=== PATIENT | female | born 2000 | race Caucasian/White ===

== ENCOUNTER 2021-06-30 14:22 | Outpatient (CLI) | payer OTHER ==
[2021-07-01 18:11] LABS: SARS-CoV-2 PCR by NAA Not Detected (NotDetected)
== END 2021-06-30 14:23 | disposition home or self-care (01) ==
LOC: CSHLAB 14:22
PROVIDERS: ATTEND Obstetrics & Gynecology
DX: Z20.822 Contact with and (suspected) exposure to COVID-19 (principal)
CPT/HCPCS: U0003; U0005

== ENCOUNTER 2021-07-02 18:22 | Day surgery (SDC) | payer OTHER ==
[2021-07-02 19:13] VITALS: BMI 45.4
== END 2021-07-02 19:49 | disposition home or self-care (01) ==
LOC: CSHLD/OP 18:22
PROVIDERS: ATTEND Obstetrics & Gynecology
DX: O99.891 Other specified diseases and conditions complicating pregnancy (principal); N89.8 Other specified noninflammatory disorders of vagina; O98.313 Other infections with a predominantly sexual mode of transmission complicating pregnancy, third trimester; A60.00 Herpesviral infection of urogenital system, unspecified; Z3A.39 39 weeks gestation of pregnancy

== ENCOUNTER 2021-07-04 07:06 | Inpatient (IN) | payer OTHER ==
[2021-07-04] MEDS ORDERED: Diphenoxylate HCl/Atropine Tablet PO PRN ×2 (07:37)
[2021-07-04] MEDS ORDERED: Promethazine HCl 25 MG/ML VIAL IM PRN ×2 (07:37→09:14)
[2021-07-04] MEDS ORDERED: Butorphanol Tartrate 1 MG/ML VIAL SLOW IVP PRN (07:37)
[2021-07-04] MEDS ORDERED: hydrALAZINE 20 MG/ML VIAL SLOW IVP PRN ×2 (07:37→17:55)
[2021-07-04] MEDS ORDERED: Docusate 100 MG CAP PO PRN (07:37)
[2021-07-04] MEDS ORDERED: Acetaminophen 500 MG TAB PO PRN (07:37)
[2021-07-04] MEDS ORDERED: Ibuprofen 800 MG TAB PO PRN (07:37)
[2021-07-04] MEDS ORDERED: Lidocaine 1% (PF) 30 ML VIAL SC PRN (07:37)
[2021-07-04] MEDS ORDERED: Misoprostol 200 MCG TAB PR PRN (07:37)
[2021-07-04] MEDS ORDERED: Ondansetron PF 4 MG/2 ML Vial IVP PRN ×3 (07:37→17:55)
[2021-07-04] MEDS ORDERED: HYDROcodone/Acetaminophen 5/325 mg Tablet PO PRN ×4 (07:37→22:00)
[2021-07-04] MEDS ORDERED: NS w/ Oxytocin 30 units 500 ML IV SCH ×3 (07:45→18:00)
[2021-07-04] MEDS ORDERED: Penicillin G Potassium 5 MILL.UNITS in Sodium Chloride 0.9% 100 ML IVPB SCH (07:45)
[2021-07-04] MEDS ORDERED: NS w/ Oxytocin 30 units 500 ML IVPB SCH (07:45)
[2021-07-04] MEDS ORDERED: Penicillin G Potassium 5 MILL.UNITS VIAL ONE (07:59)
[2021-07-04] MEDS ORDERED: Butorphanol Tartrate 1 MG/ML VIAL ONE (07:59)
[2021-07-04] MEDS: Lactated Ringer's 1,000 ML IV SCH (08:00)
[2021-07-04 08:03] LABS: Hemoglobin 11.9 g/dL (12.0-15.5); Mean Corpuscular HGB CONC 33.4 g/dL (32.0-36.0); Mean Corpuscular Hemoglobin 26.5 pg (27.0-33.0); Mean Corpuscular Volume 79.3 fl (81.6-98.3); Mean Platelet Volume 10.3 fl (7.4-10.4); Platelet Count 328 10x3/uL (150-450); RBC Distribution Width 14.9 % (11.5-14.5); Red Blood Cell (RBC) Count 4.49 10x6/uL (3.90-5.03); White Blood Cell (WBC) Count 14.6 10x3/uL (3.5-10.5)
[2021-07-04] MEDS ORDERED: Fentanyl 2 mcg/Bup 0.1% Cadd 100 ML ONE (08:39)
[2021-07-04 08:52] LABS: HIV (1/2) Antibody/Antigen Non-Reactive (NonReactive); HIV 1/2 INDEX 0.08 S/CO (<1.00); Hep B Surf Ag Non-Reactive S/CO (NonReactive); Syphilis Antibody Nonreactive (Nonreactive); Syphilis Antibody Index 0.05 S/CO (<1.00 Non-Reactive)
[2021-07-04] MEDS ORDERED: Acetaminophen 325 MG TAB PO PRN (09:14)
[2021-07-04] MEDS ORDERED: ePHEDrine Sulfate 50 MG/10 ML VIAL SLOW IVP PRN (09:14)
[2021-07-04] MEDS ORDERED: diphenhydrAMINE 50 MG/ML VIAL IVP PRN (09:14)
[2021-07-04] MEDS ORDERED: Naloxone HCl 0.4 mg/ml Vial IVP PRN ×2 (09:14)
[2021-07-04] MEDS ORDERED: Hydrocerin (Eucerin) Cream 120 gm Jar TOP PRN (09:14)
[2021-07-04] MEDS ORDERED: Lactated Ringer's 500 ML IV PRN (09:14)
[2021-07-04] MEDS ORDERED: Fentanyl 2 mcg/Bupivacaine 0.1% Cassette 100 ML EPIDURAL SCH (09:15)
[2021-07-04] MEDS ORDERED: EPIDURAL Communication Order-Pharmacy FS PRN (09:15)
[2021-07-04 09:18] LABS: HBSAg Index 0.19 S/CO (0-0.99)
[2021-07-04 10:21] VITALS: BMI 45.8
[2021-07-04] MEDS: Penicillin G 2.5 MILL.units 2.5 MILL.UNITS in Premix Bag 1 BAG IVPB SCH ×2 (12:00→16:00)
[2021-07-04] MEDS ORDERED: Preparation H Ointment 28 GM TUBE PR PRN (17:55)
[2021-07-04] MEDS ORDERED: Lanolin Ointment 7 GM TUBE TOP PRN (17:55)
[2021-07-04] MEDS ORDERED: diphenhydrAMINE 25 MG CAP PO PRN (17:55)
[2021-07-04] MEDS ORDERED: Bisacodyl 10 MG SUPP PR PRN (17:55)
[2021-07-04] MEDS ORDERED: Benzocaine-Menthol 82.5 ML CAN TOP PRN (17:55)
[2021-07-04] MEDS ORDERED: Misoprostol 200 MCG TAB VAG PRN (17:55)
[2021-07-04] MEDS ORDERED: Boostrix 0.5 ML (Tdap) VIAL IM ONE (17:55)
[2021-07-04] MEDS ORDERED: Milk Of Magnesia 30 ML UDCUP PO PRN (17:55)
[2021-07-04] MEDS ORDERED: Witch Hazel-Glycerin 1 EACH JAR TOP PRN (17:57)
[2021-07-04] MEDS: Ibuprofen 800 MG TAB PO SCH (20:31)
[2021-07-04] MEDS ORDERED: Zolpidem Tartrate 5 MG TAB PO PRN (22:00)
[2021-07-05] MEDS: Lactated Ringer's 1,000 ML IV SCH (01:47)
[2021-07-05] MEDS: Docusate Calcium (SURFAK) 240 MG CAP PO SCH ×3 (01:47→22:00)
[2021-07-05] MEDS: Penicillin G 2.5 MILL.units 2.5 MILL.UNITS in Premix Bag 1 BAG IVPB SCH (01:47)
[2021-07-05] MEDS: Ibuprofen 800 MG TAB PO SCH ×3 (05:14→22:00)
[2021-07-05 06:19] LABS: Hemoglobin 9.9 g/dL (12.0-15.5); Mean Corpuscular HGB CONC 32.1 g/dL (32.0-36.0); Mean Corpuscular Hemoglobin 26.4 pg (27.0-33.0); Mean Corpuscular Volume 82.1 fl (81.6-98.3); Mean Platelet Volume 10.6 fl (7.4-10.4); Platelet Count 288 10x3/uL (150-450); RBC Distribution Width 15.2 % (11.5-14.5); Red Blood Cell (RBC) Count 3.75 10x6/uL (3.90-5.03); White Blood Cell (WBC) Count 13.7 10x3/uL (3.5-10.5)
[2021-07-05] MEDS: Prenatal Vitamin 1 TAB PO SCH (08:22)
[2021-07-05] MEDS: Ferrous Sulfate 325 MG TAB PO SCH ×2 (08:23→17:35)
[2021-07-06] MEDS: Ibuprofen 800 MG TAB PO SCH (05:05)
[2021-07-06] MEDS: Prenatal Vitamin 1 TAB PO SCH (08:11)
[2021-07-06] MEDS: Docusate Calcium (SURFAK) 240 MG CAP PO SCH (08:11)
[2021-07-06] MEDS: Ferrous Sulfate 325 MG TAB PO SCH (08:11)
[2021-07-06 12:13] VITALS: BP 144/70; TEMP 98.1
== END 2021-07-06 12:50 | disposition home or self-care (01) | DRG 806 ==
LOC: CSHLD/OP 07:06 → CSHLD 07:53 → CSHPP 21:40
PROVIDERS: ADMIT Obstetrics & Gynecology; ATTEND Obstetrics & Gynecology
PROC: 10E0XZZ Delivery of Products of Conception, External Approach (ICD-10-PCS; principal; 2021-07-04)
PROC: 0KQM0ZZ Repair Perineum Muscle, Open Approach (ICD-10-PCS; 2021-07-04)
DX: O99.824 Streptococcus B carrier state complicating childbirth (principal); O98.52 Other viral diseases complicating childbirth; Z37.0 Single live birth; B95.1 Streptococcus, group B, as the cause of diseases classified elsewhere; Z3A.40 40 weeks gestation of pregnancy; O99.02 Anemia complicating childbirth; D64.9 Anemia, unspecified; O99.344 Other mental disorders complicating childbirth; F41.9 Anxiety disorder, unspecified; F90.9 Attention-deficit hyperactivity disorder, unspecified type; B00.9 Herpesviral infection, unspecified
CPT/HCPCS: 36415; 85027; 86780; 86850; 86900; 86901; 87340; 87389; 99282; J0595; J2540; J2590; J3490; J7120

== ENCOUNTER 2023-12-30 12:00 | Inpatient (IN) | payer BC ==
[2023-12-31] MEDS ORDERED: Bupivacaine HCl 0.5%/Epinephrine 1:200,000/PF 30 ml Vial ONE (08:00)
[2023-12-31] MEDS ORDERED: Bupivacaine 0.25% HCL 30 ML VIAL ONE (08:00)
[2024-01-01] MEDS: Lactated Ringer's 1,000 ML IV SCH (01:20)
[2024-01-01] MEDS ORDERED: HYDROcodone/Acetaminophen 5/325 mg Tablet PO PRN ×4 (01:40→16:28)
[2024-01-01] MEDS ORDERED: Misoprostol 200 MCG TAB PR PRN (01:40)
[2024-01-01] MEDS ORDERED: hydrALAZINE 20 MG/ML VIAL SLOW IVP PRN ×2 (01:40→16:28)
[2024-01-01] MEDS ORDERED: Acetaminophen 500 MG TAB PO PRN (01:40)
[2024-01-01] MEDS ORDERED: Promethazine HCl 25 MG/ML VIAL IM PRN ×2 (01:40→03:07)
[2024-01-01] MEDS ORDERED: Ibuprofen 800 MG TAB PO PRN (01:40)
[2024-01-01] MEDS ORDERED: Lidocaine 1% (PF) 30 ML VIAL SC PRN (01:40)
[2024-01-01] MEDS ORDERED: Ondansetron PF 4 MG/2 ML Vial IVP PRN ×2 (01:40→16:28)
[2024-01-01] MEDS ORDERED: Methylergonovine 0.2 MG/ML VIAL IM PRN (01:40)
[2024-01-01] MEDS ORDERED: Diphenoxylate HCl/Atropine Tablet PO PRN ×2 (01:40)
[2024-01-01] MEDS ORDERED: Carboprost 250 MCG/ML AMP IM PRN (01:40)
[2024-01-01] MEDS ORDERED: Oxytocin 30 units/NS 500 ML 500 ML IV SCH ×3 (01:40→16:30)
[2024-01-01] MEDS ORDERED: Docusate 100 MG CAP PO PRN (01:40)
[2024-01-01] MEDS ORDERED: fentaNYL 50 mcg/mL 1 mL Vial SLOW IVP PRN (01:40)
[2024-01-01 01:47] VITALS: BMI 42.8
[2024-01-01] MEDS: Penicillin G Potassium 5 MILL.UNITS in Sodium Chloride 0.9% 100 ML IVPB SCH (01:56)
[2024-01-01 01:57] LABS: Hemoglobin 11.6 g/dL (12.0-15.5); Mean Corpuscular HGB CONC 33.1 g/dL (32.0-36.0); Mean Corpuscular Hemoglobin 26.9 pg (27.0-33.0); Mean Platelet Volume 10.4 fL (7.4-10.4); Platelet Count 304 10x3/uL (150-450); RBC Distribution Width 14.6 % (11.5-14.5); Red Blood Cell (RBC) Count 4.32 10x6/uL (3.90-5.03); White Blood Cell (WBC) Count 11.9 10x3/uL (3.5-10.5)
[2024-01-01 02:22] LABS: HBsAg Index 0.18 S/CO (0-0.99); HIV (1/2) Antibody/Antigen Non-Reactive (NonReactive); Hep B Surf Ag - L&D Non-Reactive S/CO (NonReactive); Syphilis Antibody Nonreactive (Nonreactive); Syphilis Antibody Index 0.03 S/CO (<1.00 Non-Reactive)
[2024-01-01] MEDS ORDERED: fentaNYL/Ropivacaine Epidural 100 ML ONE (02:44)
[2024-01-01] MEDS ORDERED: diphenhydrAMINE 50 MG/ML VIAL IVP PRN (03:07)
[2024-01-01] MEDS ORDERED: ePHEDrine Sulfate 50 MG/10 ML VIAL SLOW IVP PRN (03:07)
[2024-01-01] MEDS ORDERED: Lactated Ringer's 500 ML IV PRN (03:07)
[2024-01-01] MEDS ORDERED: Naloxone HCl 0.4 mg/ml Vial IVP PRN ×2 (03:07)
[2024-01-01] MEDS ORDERED: Moisturizing Cream (Eucerin) 113 GM JAR TOP PRN (03:07)
[2024-01-01] MEDS ORDERED: Acetaminophen 325 MG TAB PO PRN (03:07)
[2024-01-01] MEDS ORDERED: Communication Order-Pharmacy FS SCH (03:15)
[2024-01-01] MEDS: Penicillin G 2.5 MILL.units 2.5 MILL.UNITS in Premix 1 BAG IVPB SCH (06:18)
[2024-01-01] MEDS: Oxytocin 30 units/NS 500 ML 500 ML IV SCH (09:39)
[2024-01-01] MEDS: fentaNYL 2 mcg/Ropivacaine 0.2% Epidural 100 ML CADD EPIDURAL SCH (12:54)
[2024-01-01] MEDS: Ondansetron PF 4 MG/2 ML Vial IVP PRN (15:37)
[2024-01-01] MEDS ORDERED: Benzocaine-Menthol 82.5 ML CAN TOP PRN (16:28)
[2024-01-01] MEDS ORDERED: Lanolin Ointment 7 GM TUBE TOP PRN (16:28)
[2024-01-01] MEDS ORDERED: diphenhydrAMINE 25 MG CAP PO PRN (16:28)
[2024-01-01] MEDS ORDERED: Preparation H Ointment 28 GM TUBE PR PRN (16:28)
[2024-01-01] MEDS ORDERED: Misoprostol 200 MCG TAB VAG PRN (16:28)
[2024-01-01] MEDS ORDERED: Boostrix 0.5 ML (Tdap) VIAL (>/=7 yrs of age) IM ONE (16:28)
[2024-01-01] MEDS ORDERED: Milk Of Magnesia 30 ML UDCUP PO PRN (16:28)
[2024-01-01] MEDS ORDERED: Zolpidem Tartrate 5 MG TAB PO PRN (16:28)
[2024-01-01] MEDS ORDERED: Bisacodyl 10 MG SUPP PR PRN (16:28)
[2024-01-01] MEDS ORDERED: Witch Hazel-Glycerin 1 EACH JAR TOP PRN (16:30)
[2024-01-01] MEDS: Ibuprofen 800 MG TAB PO SCH (18:14)
[2024-01-01] MEDS: Ferrous Sulfate 325 MG TAB PO SCH (18:37)
[2024-01-02] MEDS: Docusate 100 MG CAP PO SCH (01:17)
[2024-01-02 04:33] VITALS: TEMP 97.8
[2024-01-02 04:45] LABS: Hematocrit 30.7 % (34.9-44.5); Hemoglobin 10.2 g/dL (12.0-15.5); Mean Corpuscular HGB CONC 33.2 g/dL (32.0-36.0); Mean Corpuscular Hemoglobin 27.1 pg (27.0-33.0); Mean Corpuscular Volume 81.4 fL (81.6-98.3); Mean Platelet Volume 10.4 fL (7.4-10.4); Platelet Count 279 10x3/uL (150-450); RBC Distribution Width 14.8 % (11.5-14.5); Red Blood Cell (RBC) Count 3.77 10x6/uL (3.90-5.03); White Blood Cell (WBC) Count 16.5 10x3/uL (3.5-10.5)
[2024-01-02] MEDS: Prenatal Vitamin 1 TAB PO SCH (08:16)
[2024-01-02 08:31] VITALS: BP 115/56
== END 2024-01-02 16:25 | disposition home or self-care (01) | DRG 807 ==
LOC: CSHLD 12-31 23:40 → UNDOADMIN 12-31 23:40 → CSHLD 01-01 01:40 → CSHPP 01-01 15:45
PROVIDERS: ADMIT Obstetrics & Gynecology; ATTEND Obstetrics & Gynecology
PROC: 10E0XZZ Delivery of Products of Conception, External Approach (ICD-10-PCS; principal; 2024-01-01)
PROC: 10907ZC Drainage of Amniotic Fluid, Therapeutic from Products of Conception, Via Natural or Artificial Opening (ICD-10-PCS; 2024-01-01)
PROC: 3E033XZ Introduction of Vasopressor into Peripheral Vein, Percutaneous Approach (ICD-10-PCS; 2024-01-01)
DX: O99.214 Obesity complicating childbirth (principal); Z37.0 Single live birth; O70.1 Second degree perineal laceration during delivery; Z3A.40 40 weeks gestation of pregnancy; O99.344 Other mental disorders complicating childbirth; O99.824 Streptococcus B carrier state complicating childbirth
CPT/HCPCS: 36415; 51702; 85027; 86780; 86850; 86900; 86901; 87340; 87389; J0665; J2405; J2540; J2590; J3490; J7120